=== PATIENT | female | born 1990 | race Caucasian/White ===

== ENCOUNTER 2022-06-19 12:29 | Outpatient (CLI) | payer OTHER, SELFPAY | END 2022-06-19 12:30 | disposition home or self-care (01) | PROVIDERS: Visit Provider Obstetrics & Gynecology | DX: O20.0 Threatened abortion (principal); Z3A.00 Weeks of gestation of pregnancy not specified | CPT/HCPCS: 36415; 85461; 86850; 86900; 86901 ==

== ENCOUNTER 2022-09-27 08:42 | Observation (INO) | payer OTHER, SELFPAY ==
--- NOTE | ~2022-09-27 | US_ITS ---
EXAMINATION: US OB limited, US OB transvaginal DATE: 09/27/2022 10:21 INDICATION: Vaginal bleeding during third trimester TECHNIQUE: Real-time ultrasound of the pelvis was performed. The interpreting radiologist was not pre sent for the study. COMPARISON: None. FINDINGS: There is a single living fetus in vertex presentation. The placenta is anterior and normal in appearance. The measured cervical length is 3.3 cm. cardiac activity and movement are noted. heart rate is 142 beats per minute (bpm). The amniotic fluid index is subjectively luci l. IMPRESSION: 1. Single living fetus in vertex presentation. 2. Measured cervical length 3.3 cm. 3. Normal-appearing anterior placenta. Reviewed, dictated and finalized at location B. IMPRESSION: 1. Single living fetus in vertex presentation. 2. Measured cervical length 3.3 cm. 3. Normal-appearing anterior placenta.
[2022-09-27 09:08] VITALS: BP 135/86; PULSE 83
[2022-09-27 09:15] VITALS: BP 125/87; PULSE 91; BMI 30.9
[2022-09-27 09:30] VITALS: BP 114/79; PULSE 75
[2022-09-27 09:45] VITALS: BP 116/78; PULSE 73
--- NOTE | 2022-09-27 09:55 | LDADM ---
This patient, Francisca Duffy, was admitted to [facility] on 09/27/22 at 08:42. Plans for labor, pain management and were discussed with patient. Patient/family oriented to hospital policies and general routines including ID bracelet, bed and alarms, visiting hours, pain management, procedures, bathroom and other care routines, personal items, smoking policy, room service/diet and guest tray routines, infant security routines, and visiting hours. Patient/Family are encouraged to report perceived risks to care and to ask questions if they do not understand what they are told or what they should do. See OBIX for further documentation.
--- NOTE | 2022-09-27 09:57 | PC.NURSE ---
Patient came in with complaints of vaginal bleeding this morning when urinating. Patient denies any pain. Catarina pad applied to patient and monitored FHT. FHT monitored from [id number]. Baseline 140 with moderate variability and 10x10 accelerations. No uterine activity noted. Called Simin Marcelino CNM at 0944 and reported maternal and status. Verbal orders received for ultrasound with placenta check and cervical length. May take patient off monitor at this time.
--- NOTE | 2022-09-27 10:56 | PC.NURSE ---
Spoke with CNM at 1054 on phone. Discussed US results. Patient has no new bleeding at this time. Verbal orders given for UA with culture and discharge orders given. Patient agrees to plan of care and has no questions at this time.
[2022-09-27 11:29] LABS: Appearance Urine Clear (Clear); Bacteria Urine None Seen /hpf; Bilirubin Urine Negative (Negative); Blood Urine Trace (Negative); Color Urine Yellow (Yellow); Glucose Urine UA Negative (Negative); Ketones Urine Negative (Negative); Leukocyte Esterase Ur Negative LEU/UL (Negative); Nitrate Urine Negative (Negative); Non Pathogenic Casts 0-2; Protein Urine Negative (Negative); RBC Urine 0-2 /hpf (0-2); Specific Grav Ur 1.009 (1.001-1.035); Squamous Epithelial Cell Urine None seen /hpf (Few); Urobilinogen Urine 0.2 mg/dL (<2.0); WBC Urine 0-5 /hpf
[2022-09-27 11:34] LABS: Add Urine Microscopic? YES
--- NOTE | 2022-09-30 16:16 | P.PNOB_ITS ---
OB - Triage/Final Diagnosis Visit Information Date of evaluation: 09/27/22 Reason for evaluation: other (spotting) Comments/Additional reasons for admission: I have assessed the risk for this patient, Francisca Bonilla Duffy, and determined that she would benefit from observation care. Evaluation Laboratory results: Laboratory Tests 09/27/22 11:13 Urine Color Yellow Urine Appearance Clear Urine pH 7.[address] 1.009 Urine Protein Negative Urine Glucose (UA) Negative Urine Ketones Negative Ur Blood (Man) Trace Urine Nitrate Negative Urine Bilirubin Negative Urine Urobilinogen 0.2 Leukocyte Esterase Rfl Negative Urine RBC 0-2 Urine WBC 0-5 Ur Squamous Epith Cells None seen Urine Bacteria None seen Urine Casts 0-2
== END 2022-09-27 11:15 | disposition home or self-care (01) ==
PROVIDERS: Advanced Practice Midwife; Admitting Provider Obstetrics & Gynecology; PCP Internal Medicine; Visit Provider Obstetrics & Gynecology
DX: O26.852 Spotting complicating pregnancy, second trimester (principal); Z3A.25 25 weeks gestation of pregnancy
CPT/HCPCS: 76815; 76817; 81001; G0378; G0379

== ENCOUNTER 2022-12-06 15:24 | Outpatient (CLI) | payer OTHER, SELFPAY ==
[2022-12-06 15:48] VITALS: BP 135/88; PULSE 79
[2022-12-06 15:54] LABS: Appearance Urine Cloudy (Clear); Bacteria Urine None Seen /hpf; Bilirubin Urine Negative (Negative); Blood Urine Negative (Negative); Color Urine Yellow (Yellow); Glucose Urine UA Negative (Negative); Ketones Urine Negative (Negative); Leukocyte Esterase Ur Trace LEU/UL (NEGATIVE); Nitrate Urine Negative (Negative); Non Pathogenic Casts 0-2; Protein Urine Negative (Negative); RBC Urine 0-2 /hpf (0-2); Specific Grav Ur 1.014 (1.001-1.035); Squamous Epithelial Cell Urine Occasional /hpf (Few); WBC Urine 0-5 /hpf (0-3); pH Urine 6.5 (5.0-9.0)
[2022-12-06 15:56] LABS: Add Urine Microscopic? YES
[2022-12-06 16:01] VITALS: BP 134/80; PULSE 75
[2022-12-06 16:04] LABS: Basophils Percent Auto 0.3 % (0.2-1.2); Eosinophils Absolute Auto 0.1 K/mm3 (0-0.3); Eosinophils Percent Auto 0.4 % (0-4.4); Hematocrit 38.7 % (37.0-47.0); Hemoglobin 12.9 g/dL (12.0-15.0); Immature Granulocyte Absolute 0.06 K/mm3 (0.00-0.031); Immature Granulocyte Percent A 0.5 % (0-0.5); Lymphocytes Absolute Auto 2.19 K/mm3 (0.9-3.2); Lymphocytes Percent Auto 18.8 % (18.3-44.2); Mean Corpuscular HGB Conc 33.3 g/dl (32-36); Mean Corpuscular Hemoglobin 29.5 pg (26-34); Mean Corpuscular Volume 88.4 fl (80-100); Mean Platelet Volume 11.6 fl (7.4-10.4); Monocytes Absolute Auto 0.7 K/mm3 (0.1-0.6); Monocytes Percent Auto 6.1 % (2.6-8.5); Neutrophils Absolute Auto 8.6 K/mm3 (1.3-6.7); Neutrophils Percent Auto 73.9 % (45.5-73.1); Platelet Count Result 241 k/mm3 (150-375); Red Blood Count 4.38 M/mm3 (4.2-5.4); Red Cell Distribution Width 12.5 % (11.5-14.5); White Blood Count 11.7 K/mm3 (4.5-10.0)
[2022-12-06 16:07] LABS: Total Protein Urine Random 18 mg/dL; Ur Ttl Prot Creatinine Ratio 0.19 mg/mg (0-0.20)
[2022-12-06 16:14] LABS: Alanine Aminotransferase 32 U/L (6-35); Albumin Level 3.5 g/dL (3.5-5.1); Alkaline Phosphatase 150 U/L (38-126); Anion Gap 7 mmol/L (8-16); Aspartate Amino Transferase 28 U/L (14-36); Bilirubin,Total 0.5 mg/dL (0.2-1.3); Blood Urea Nitrogen 6 mg/dL (7-17); Carbon Dioxide 19 mmol/L (22-30); Chloride 107 mmol/L (98-107); Estimated Glomerular Filt Rate > 60; Glucose 99 mg/dL (65-110); Potassium 3.7 mmol/L (3.4-5.0); Sodium 133 mmol/L (137-145); Uric Acid 4.8 mg/dL (2.5-7.5)
[2022-12-06 16:15] VITALS: BP 132/80; PULSE 83
== END 2022-12-06 16:35 | disposition home or self-care (01) ==
LOC: ANHOBOP 15:29 → ANHOBPP 15:30
PROVIDERS: PCP Internal Medicine; Visit Provider Advanced Practice Midwife
DX: O13.9 Gestational [pregnancy-induced] hypertension without significant proteinuria, unspecified trimester (principal); Z3A.00 Weeks of gestation of pregnancy not specified
CPT/HCPCS: 36415; 59025; 80053; 81001; 82570; 84156; 84550; 85025; 87086; 87147; 87181; 87186; 99199

== ENCOUNTER 2022-12-13 10:52 | Outpatient (CLI) | payer OTHER, SELFPAY ==
--- NOTE | ~2022-12-13 | US_ITS ---
EXAMINATION: US OB BPP wo non-stress DATE: 12/13/2022 12:41 INDICATION: Third trimester with -induced hypertension. TECHNIQUE: Real-time pelvic ultrasound was performed. The interpreting radiologist was not present fo r the study. COMPARISON: None. FINDINGS: There is a single living fetus in vertex presentation. The placenta is anterior. heart rate is 136 beats per minute (bpm). Normal amniotic fluid index of 16.3 cm (5th%-95%: 7.1-24.9 cm at 36 week s estimated gestational age) The following biometric data were obtained: BPD: 9.1 cm -> 36 weeks 6 days Head circumference: 31.9 cm -> 35 weeks 6 days Abdominal circumference: 32.1 cm -> 36 weeks 0 days Femur length: 7.1 cm -> 36 weeks 2 days These measurements are concordant. Head circumference to abdominal circumference ratio: 0.99 (normal range 0.92-1.07). Estimated weight: 2859 g (+/-) 429 g, 6 lbs 5 oz (+/-) 15 oz Biophysical profile performed by the technologist: breathing (30 sec sustained breathing in 30 minutes): 2 out of 2 movement (3 gross body movements in 30 minutes: 2 out of 2 tone (one episode of quoxyzk-ymawpupce-iomwfsm limb movement): 2 out of 2 Amniotic fluid pocket (2 cm): 2 out of 2 Total score: 8 out of 8 IMPRESSION: 1. Single living fetus in vertex presentation. 2. Normal amniotic fluid index of 16.3 cm. 3. Biophysical profile 8 out of 8. 4. Estimated weight is 52nd percentile by Hadlock criteria when 01/09/2023 is used as the estim ated date of delivery (SAM). Please correlate with clinical information or earlier ultrasounds for mo st accurate SAM. Reviewed, dictated and finalized at location A. IMPRESSION: 1. Single living fetus in vertex presentation. 2. Normal amniotic fluid index of 16.3 cm. 3. Biophysical profile 8 out of 8. 4. Estimated weight is 52nd percentile by Hadlock criteria when 3 is used as the estimated date of delivery (SAM). Please correlate with clinic al information or earlier ultrasounds for most accurate SAM.
[2022-12-13 11:17] LABS: Basophils Percent Auto 0.3 % (0.2-1.2); Eosinophils Absolute Auto 0.1 K/mm3 (0-0.3); Eosinophils Percent Auto 0.5 % (0-4.4); Hematocrit 40.8 % (37.0-47.0); Hemoglobin 13.4 g/dL (12.0-15.0); Immature Granulocyte Absolute 0.04 K/mm3 (0.00-0.031); Immature Granulocyte Percent A 0.4 % (0-0.5); Lymphocytes Absolute Auto 1.97 K/mm3 (0.9-3.2); Lymphocytes Percent Auto 19.2 % (18.3-44.2); Mean Corpuscular HGB Conc 32.8 g/dl (32-36); Mean Corpuscular Hemoglobin 29.5 pg (26-34); Mean Corpuscular Volume 89.9 fl (80-100); Mean Platelet Volume 11.2 fl (7.4-10.4); Monocytes Absolute Auto 0.7 K/mm3 (0.1-0.6); Monocytes Percent Auto 6.7 % (2.6-8.5); Neutrophils Absolute Auto 7.5 K/mm3 (1.3-6.7); Neutrophils Percent Auto 72.9 % (45.5-73.1); Platelet Count Result 247 k/mm3 (150-375); Red Blood Count 4.54 M/mm3 (4.2-5.4); Red Cell Distribution Width 12.6 % (11.5-14.5); White Blood Count 10.3 K/mm3 (4.5-10.0)
[2022-12-13 11:20] VITALS: BP 110/82; PULSE 76
[2022-12-13 11:26] LABS: Alanine Aminotransferase 38 U/L (6-35); Albumin Level 3.6 g/dL (3.5-5.1); Alkaline Phosphatase 178 U/L (38-126); Anion Gap 5 mmol/L (8-16); Aspartate Amino Transferase 40 U/L (14-36); Bilirubin,Total 0.7 mg/dL (0.2-1.3); Blood Urea Nitrogen 6 mg/dL (7-17); Carbon Dioxide 22 mmol/L (22-30); Chloride 105 mmol/L (98-107); Estimated Glomerular Filt Rate > 60; Glucose 79 mg/dL (65-110); Potassium 3.5 mmol/L (3.4-5.0); Sodium 132 mmol/L (137-145); Uric Acid 5.1 mg/dL (2.5-7.5)
[2022-12-13 11:30] LABS: Creatinine Urine 48.1 mg/dL; Total Protein Urine Random 18 mg/dL; Ur Ttl Prot Creatinine Ratio 0.37 mg/mg (0-0.20)
[2022-12-13 11:31] VITALS: BP 112/89; PULSE 89
[2022-12-13 11:37] LABS: Add Urine Microscopic? YES; Appearance Urine Cloudy (Clear); Bacteria Urine None Seen /hpf; Bilirubin Urine Negative (Negative); Blood Urine Negative (Negative); Color Urine Yellow (Yellow); Glucose Urine UA Negative (Negative); Ketones Urine Negative (Negative); Leukocyte Esterase Ur 3+ LEU/UL (NEGATIVE); Nitrate Urine Negative (Negative); Non Pathogenic Casts 0-2; Protein Urine Negative (Negative); RBC Urine 0-2 /hpf (0-2); Specific Grav Ur 1.006 (1.001-1.035); Squamous Epithelial Cell Urine Moderate /hpf (Few); Urobilinogen Urine 0.2 mg/dL (<2.0); pH Urine 7.5 (5.0-9.0)
[2022-12-13 11:46] VITALS: BP 105/79; PULSE 84
--- NOTE | 2022-12-13 12:20 | PC.NURSE ---
Simin Marcelino on the unit reviewed labs and blood pressures. Pt currently down in ultrasound. Simin Marcelino planning an induction next fri.
--- NOTE | 2022-12-13 12:35 | PC.NURSE ---
pt to [facility] office for preadmission paperwork. Pt advised that the office will be calling to set up an appointment for blood pressure and lab works on Friday.
[2022-12-13 12:36] VITALS: BP 105/79; PULSE 81
== END 2022-12-13 12:35 | disposition home or self-care (01) ==
LOC: ANHOBOP 10:56 → ANHOBPP 10:57
PROVIDERS: PCP Internal Medicine; Visit Provider Obstetrics & Gynecology
DX: O13.9 Gestational [pregnancy-induced] hypertension without significant proteinuria, unspecified trimester (principal); Z3A.00 Weeks of gestation of pregnancy not specified
CPT/HCPCS: 36415; 59025; 76819; 80053; 81001; 82570; 84156; 84550; 85025; 87077; 87086; 87186; 99199

== ENCOUNTER 2022-12-16 09:21 | Outpatient (CLI) | payer OTHER, SELFPAY ==
[2022-12-16 09:46] LABS: Basophils Percent Auto 0.3 % (0.2-1.2); Eosinophils Absolute Auto 0.1 K/mm3 (0-0.3); Eosinophils Percent Auto 0.5 % (0-4.4); Hematocrit 39.9 % (37.0-47.0); Hemoglobin 13.3 g/dL (12.0-15.0); Immature Granulocyte Absolute 0.06 K/mm3 (0.00-0.031); Immature Granulocyte Percent A 0.6 % (0-0.5); Lymphocytes Absolute Auto 1.95 K/mm3 (0.9-3.2); Lymphocytes Percent Auto 19.1 % (18.3-44.2); Mean Corpuscular HGB Conc 33.3 g/dl (32-36); Mean Corpuscular Hemoglobin 29.5 pg (26-34); Mean Corpuscular Volume 88.5 fl (80-100); Mean Platelet Volume 11.5 fl (7.4-10.4); Monocytes Absolute Auto 0.6 K/mm3 (0.1-0.6); Monocytes Percent Auto 6.2 % (2.6-8.5); Neutrophils Absolute Auto 7.5 K/mm3 (1.3-6.7); Neutrophils Percent Auto 73.3 % (45.5-73.1); Platelet Count Result 228 k/mm3 (150-375); Red Blood Count 4.51 M/mm3 (4.2-5.4); Red Cell Distribution Width 12.8 % (11.5-14.5); White Blood Count 10.2 K/mm3 (4.5-10.0)
[2022-12-16 09:55] LABS: Creatinine Urine 39.5 mg/dL; Total Protein Urine Random 19 mg/dL; Ur Ttl Prot Creatinine Ratio 0.48 mg/mg (0-0.20)
[2022-12-16 09:57] LABS: Alanine Aminotransferase 36 U/L (6-35); Albumin Level 3.5 g/dL (3.5-5.1); Alkaline Phosphatase 163 U/L (38-126); Anion Gap 8 mmol/L (8-16); Aspartate Amino Transferase 30 U/L (14-36); Bilirubin,Total 0.5 mg/dL (0.2-1.3); Blood Urea Nitrogen 6 mg/dL (7-17); Calcium 9.4 mg/dL (8.4-10.2); Carbon Dioxide 17 mmol/L (22-30); Chloride 108 mmol/L (98-107); Estimated Glomerular Filt Rate > 60; Glucose 90 mg/dL (65-110); Potassium 3.6 mmol/L (3.4-5.0); Sodium 133 mmol/L (137-145); Uric Acid 5.4 mg/dL (2.5-7.5)
[2022-12-16 10:14] VITALS: BP 122/80
[2022-12-16 10:26] VITALS: BP 126/80
[2022-12-16 10:31] LABS: Add Urine Microscopic? YES; Appearance Urine Cloudy (Clear); Bacteria Urine None Seen /hpf; Bilirubin Urine Negative (Negative); Blood Urine Negative (Negative); Color Urine Yellow (Yellow); Glucose Urine UA Negative (Negative); Ketones Urine Negative (Negative); Leukocyte Esterase Ur 3+ LEU/UL (NEGATIVE); Need Manual Microscopic Reviewed; Nitrate Urine Negative (Negative); Non Pathogenic Casts 0-2; Protein Urine Negative (Negative); RBC Urine 0-2 /hpf (0-2); Specific Grav Ur 1.005 (1.001-1.035); Squamous Epithelial Cell Urine Many /hpf (Few); Urobilinogen Urine 0.2 mg/dL (<2.0); WBC Urine 21-50 /hpf (0-3)
[2022-12-16 10:32] VITALS: BP 122/80
== END 2022-12-16 11:00 | disposition home or self-care (01) ==
LOC: ANHOBOP 09:26 → ANHOBPP 09:27
PROVIDERS: PCP Internal Medicine; Visit Provider Advanced Practice Midwife
DX: O13.9 Gestational [pregnancy-induced] hypertension without significant proteinuria, unspecified trimester (principal); Z3A.00 Weeks of gestation of pregnancy not specified
CPT/HCPCS: 36415; 59025; 80053; 81001; 82570; 84156; 84550; 85025; 87086; 87088; 99199

== ENCOUNTER 2022-12-19 00:01 | Inpatient (IN) | payer OTHER, SELFPAY ==
[2022-12-19] VITALS (43 sets, daily range): BP systolic 108–160; BP diastolic 61–108; PULSE 59–92; TEMP 36.1–36.4; BMI 32.3
--- NOTE | 2022-12-19 00:30 | LDADM ---
This patient, Francisca Duffy, was admitted to Labor/Delivery/Recovery 106 on 12/19/22 at 00:01. Plans for labor, pain management and were discussed with patient. Patient/family oriented to hospital policies and general routines including ID bracelet, bed and alarms, visiting hours, pain management, procedures, bathroom and other care routines, personal items, smoking policy, room service/diet and guest tray routines, security routines, and visiting hours. Patient/Family are encouraged to report perceived risks to care and to ask questions if they do not understand what they are told or what they should do. See OBIX for further documentation.
[2022-12-19 00:59] LABS: Basophils Percent Auto 0.3 % (0.2-1.2); Eosinophils Absolute Auto 0.1 K/mm3 (0-0.3); Eosinophils Percent Auto 0.6 % (0-4.4); Hematocrit 38.9 % (37.0-47.0); Hemoglobin 12.8 g/dL (12.0-15.0); Immature Granulocyte Absolute 0.05 K/mm3 (0.00-0.031); Immature Granulocyte Percent A 0.5 % (0-0.5); Lymphocytes Absolute Auto 2.09 K/mm3 (0.9-3.2); Mean Corpuscular HGB Conc 32.9 g/dl (32-36); Mean Corpuscular Hemoglobin 29.4 pg (26-34); Mean Corpuscular Volume 89.4 fl (80-100); Monocytes Absolute Auto 0.9 K/mm3 (0.1-0.6); Monocytes Percent Auto 9.1 % (2.6-8.5); Neutrophils Absolute Auto 6.8 K/mm3 (1.3-6.7); Neutrophils Percent Auto 68.5 % (45.5-73.1); Platelet Count Result 217 k/mm3 (150-375); Red Blood Count 4.35 M/mm3 (4.2-5.4); Red Cell Distribution Width 12.7 % (11.5-14.5); White Blood Count 9.9 K/mm3 (4.5-10.0)
[2022-12-19] MEDS: DINOPROSTONE 10 MG VAG INSERT VAGINAL (01:01)
[2022-12-19 01:26] LABS: Anion Gap 6 mmol/L (8-16); Blood Urea Nitrogen 5 mg/dL (7-17); Carbon Dioxide 19 mmol/L (22-30); Chloride 107 mmol/L (98-107); Estimated CRCL calculation 181 ml/min; Estimated Glomerular Filt Rate > 60; Glucose 84 mg/dL (65-110); Potassium 3.5 mmol/L (3.4-5.0); Sodium 132 mmol/L (137-145)
[2022-12-19] MEDS: miSOPROStol 25 MCG TABLET 50 MCG PO ×3 (13:35→22:12)
[2022-12-19 14:27] LABS: Rapid Plasma Reagin Non-Reactive (NonReactive)
--- NOTE | 2022-12-19 16:41 | WPDANESEPP ---
Anes - Eval Pre Procedure Procedure: labor epidural Date/Time: 12/19/22 16:41 Pre Op Diagnosis: IOL Patient Data Age: 32 Gender: F Height: 1.8 m Weight: 105 kg Last Vital Signs Temp 36.3 C L 12/19/22 15:00 Pulse 68 12/19/22 16:31 BP 119/62 12/19/22 16:31 O2 Del Method Room Air 12/19/22 00:28 Allergies Allergy/AdvReac Type Severity Reaction Status Date / Time No Known Allergies Allergy Verified 09/27/22 10:13 Home Medications Medication Instructions Recorded Confirmed Type levothyroxine 50 mcg tablet 50 mcg PO DAILY 09/27/22 09/27/22 History ampicillin 500 mg capsule 500 mg PO BID 12/13/22 12/13/22 History prenat.vits,russell,mxm-tzic-vnaef tablet 12/13/22 History Laboratory Tests 12/19/22 00:38 WBC 9.9 K/mm3 (4.5-10.0) RBC 4.35 M/mm3 (4.2-5.4) Hgb 12.8 g/dL (12.0-15.0) Hct 38.9 % (37.0-47.0) MCV 89.4 fl (80-100) MCH 29.4 pg (26-34) MCHC 32.9 g/dl (32-36) RDW 12.7 % (11.5-14.5) Plt Count 217 k/mm3 (150-375) MPV 12.0 H fl (7.4-10.4) Immature Gran % (Auto) 0.5 % (0-0.5) Neut % (Auto) 68.5 % (45.5-73.1) Lymph % (Auto) 21.0 % (18.3-44.2) Smith % (Auto) 9.1 H % (2.6-8.5) Eos % (Auto) 0.6 % (0-4.4) Baso % (Auto) 0.3 % (0.2-1.2) Lymph # (Auto) 2.09 K/mm3 (0.9-3.2) Smith # (Auto) 0.9 H K/mm3 (0.1-0.6) Eos # (Auto) 0.1 K/mm3 (0-0.3) Baso # (Auto) 0.0 K/mm3 (0.0-0.1) Abs Immat Gran (auto) 0.05 H K/mm3 (0.00-0.031) Absolute Neuts (auto) 6.8 H K/mm3 (1.3-6.7) Absolute Nucleated RBC 0.0 K/mm3 (0.0-0.012) Nucleated RBC % 0.0 % (0.0-0.2) Sodium 132 L mmol/L (137-145) Potassium 3.5 mmol/L (3.4-5.0) Chloride 107 mmol/L (98-107) Carbon Dioxide 19 L mmol/L (22-30) Anion Gap 6 L mmol/L (8-16) BUN 5 L mg/dL (7-17) Creatinine 0.50 L mg/dL (0.7-1.0) Estim Creat Clear Calc 181 ml/min Estimated GFR > 60 (59 - ) Glucose 84 mg/dL (65-110) Calcium 9.0 mg/dL (8.4-10.2) RPR Non-reactive (NonReactive) Blood Type O Positive Antibody Screen Negative Patient hx anesthesia problems: none Family hx anesthesia problems: none Results Review: All pre-operative results and documents have been reviewed as part of the pre-operative evaluation. FORMERLY [facility], [facility] Past Medical History Medical History (Updated 12/19/22 @ 16:42 by Samia Mar CRNA) Anxiety Hypothyroid Obesity (BMI 30-39.9) PIH ( induced hypertension) UTI (urinary tract infection) Family History Family History Other Patient denies significant medical history Social History Social History Smoking status: Never smoker Substance use: never Lack of Transportation: No Lack of Food: Never True Current Housing: I Have Housing Concerned About Future Housing: No Difficulty Paying Gas/Electric Bills: No Difficulty Paying for Meds: No Currently Unemployed: No Education: Bachelor's Degree Difficulty w/ Childcare or Family Care: No Spiritual care concerns: No Exam Day of Procedure 12/19/22 16:41 Patient weight: obese Heart: regular rate and rhythm Lungs: normal air movement Airway: Mallampati scale Neurological: alert and oriented
[2022-12-20] VITALS (213 sets, daily range): BP systolic 62–153; BP diastolic 25–100; PULSE 54–238; TEMP 36.6–37.1; O2SAT 89–100
[2022-12-20] MEDS: miSOPROStol 25 MCG TABLET VAGINAL ×3 (02:29→10:39)
[2022-12-20] MEDS: ACETAMINOPHEN 500 MG TABLET 1000 MG PO ×2 (02:32→08:07)
[2022-12-20] MEDS: fentaNYL CITRATE INJ (*CRX) 100 MCG/2 ML VIAL IV PUSH (12:32)
[2022-12-20] MEDS: LACTATED RINGERS 1,000 ML 125 ML IV CONT ×2 (13:23→18:21)
[2022-12-20] MEDS: OXYTOCIN 30 UNITS/NS 500 ML 30 UNITS/500 ML BAG 6 UNITS IV CONT (15:04)
--- NOTE | 2022-12-20 21:47 | WPDOBADMIT ---
Obstetrics - Admit Note Admission Note: Late entry, patient seen at 0805 on 12/20. Presents for MIL indicated for gestational HTN. Denies symptoms of preeclampsia. Good movement. Tolerated cervidil and cytotec ripening well. Plan for gordon bulb and pitocin. record reviewed. No pertinent additions to the history and/or any subsequent changes in the physical findings that are not consistent with the expected course of the were found. Additions to the history and/or subsequent changes in the physical findings follow. None.
--- NOTE | 2022-12-20 21:48 | PM.OBPNLAB ---
Pain Control Date/time seen: 12/20/22 18:00 Comments: AROM performed with clear fluid, moderate amount. Pelvic Exam Dilation (cm): 4 Effacement (%): 60 station: -3 Amniotic membrane status: Bulging Status status: Category l Comments: s/p prolonged decel with good recovery Assessment and Plan Assessment: induction ongoing Plan: continuous present management Comments: restart pitocin per protocol when able. IUPC placed.
[2022-12-21] VITALS (70 sets, daily range): BP systolic 105–154; BP diastolic 48–91; PULSE 57–134; RESP 16–18; TEMP 36.7–37; O2SAT 96–100
--- NOTE | 2022-12-21 04:59 | P.PCNOB_ITS ---
OB - Vaginal Delivery Note Procedure Delivery date: 12/21/22 Events: Gestational Hypertension Induction method: Per Misoprostol Protocol and Per Cervidil Protocol Delivery augmentation: Rupture of Membranes and Pitocin Delivery monitor: External FHT, External Uterine, Internal FHT and Internal Uterine Route of delivery: Laceration Description: Perineal - 2nd Degree Delivery repair: vicryl Specimen: Yes (placenta for pathology) Quantitative Blood Loss (ml): 50 Anesthesia type: Epidural Disposition: Floor Complications: No immediate complications [place] Baby Date of : 12/21/22 Weeks of gestation at delivery: 37 Weight (pounds): 6 Weight (ounces): 1 presentation: vertex position: Left Occiput Anterior Placenta delivery description: Spontaneous and Normal Configuration
[2022-12-21] MEDS: SODIUM CHLORIDE 0.9% IV 300 ML 600 ML I-UTERINE (05:33)
[2022-12-21] MEDS: ACETAMINOPHEN 325 MG TABLET 650 MG PO ×3 (05:48→19:24)
[2022-12-21] MEDS: IBUPROFEN 600 MG TABLET PO ×3 (05:48→19:24)
--- NOTE | 2022-12-21 07:30 | PC.NURSE ---
Patient arrived at 0701, assessed, admitted, paperwork discussed.
[2022-12-21] MEDS: MULTIVIT/MIN/PREN/FOL AC/IRON TABLET 1 TAB PO (10:17)
--- NOTE | 2022-12-21 14:30 | PC.NURSE ---
Breast pump provided due to ineffective feedings. Instructions given on cleaning, care, usage, that there should be no pain, pumping schedule for milk production, collection, and storage of human milk. Patient was assessed for correct placement, flange size, to pump for comfort and nipple stretching/stimulation for adequate milk production every 3 hours (8 times in 24 hours) 1-2 times at night.
[2022-12-22 00:15] VITALS: BP 137/93; PULSE 84; RESP 16; TEMP 36.1; O2SAT 100
[2022-12-22] MEDS: IBUPROFEN 600 MG TABLET PO ×3 (01:00→13:21)
[2022-12-22] MEDS: ACETAMINOPHEN 325 MG TABLET 650 MG PO ×3 (01:00→13:21)
[2022-12-22 05:58] LABS: Hematocrit 37.1 % (37.0-47.0); Hemoglobin 12.3 g/dL (12.0-15.0)
[2022-12-22 07:15] VITALS: BP 128/81; PULSE 57; RESP 16; TEMP 36.9; O2SAT 98
[2022-12-22] MEDS: MULTIVIT/MIN/PREN/FOL AC/IRON TABLET 1 TAB PO (07:20)
--- NOTE | 2022-12-22 07:28 | PM.OBPNVD ---
OB - PN: Subj Subjective Date/time seen: 12/22/22 07:28 Patient comments: no complaints, pain well controlled, incisional pain, tolerating diet and flatus present OB - PN: Obj Data Labs 12/22/22 05:44 12/19/22 00:38 Labs: Laboratory Results - last 24 hr 12/22/22 05:44 Hgb 12.3 Hct 37.1 OB - PN A/P Plan day: 1 Plan: routine care Comments: No problems, routine care Time Spent With Patient Time: Total time spent is greater than 50% in coordination of care (as documented) at patient's floor/unit and/or counseling patient: Exam Const: General: comfortable, no acute distress and alert Resp: Effort & Inspection: normal respiratory effort Auscultation: no crackles, no rales and no rhonchi Cardio: Rate: regular rate Heart sounds: no click, no murmurs and no rubs GI: Inspection: non-distended GI Palp: No Tenderness to palpation present (GI) Auscultation: normal bowel sounds Other: Incision - CDI Extrem: General: normal to inspection, no pedal edema and no calf tenderness
--- NOTE | 2022-12-22 07:28 | PM.OBDSVD ---
DS: Admitting Diagnosis Discharge Date December 22/2023 Admitting Diagnosis term DS: Discharge Diagnosis Discharge Diagnosis (1) Post term , delivered: Code(s): O48.0 - Post-term Status: Acute OB - DS: Summary OB Procedures : None OB Procedures Intrapartum: Spontaneous Vag Delivery OB Procedures: : None Peripartum Data Laceration Description: Perineal - 2nd Degree Time Spent with Patient Time attestation: Total time spent providing and/or coordinating discharge services: DS: Data Data Completed and Pending Pending studies at discharge: Pending at discharge 12/21/22 04:39 Surgical [PTH] Routine Labs on day of discharge: Labs from last 24 hours 12/22/22 05:44 Hgb 12.3 Hct 37.1 Discharge Plan Discharge Attending physician on discharge: Enoch Sarmiento Discharging Clinician: Enoch Sarmiento Patient Disposition: Home, Self-Care Activity: pelvic rest Diet: regular Patient Instructions: Antibiotic Form Stand Alone Forms: General Discharge Information Follow-up/Referrals: Enoch Sarmiento MD [Physician] - Discharge Medications: Continued levothyroxine 50 mcg tablet 50 mcg PO DAILY #2 Tablet Discontinued ampicillin 500 mg Capsule 500 mg PO BID Date of admission: 12/19/22 00:01 Primary Care Provider: Can,Sushant Kendall Admitting Provider: Jorge Daniel Attending physician on admission: Aissatou Marcelino Condition: Stable
[2022-12-22 11:55] VITALS: BP 129/81; PULSE 64
--- NOTE | 2022-12-22 14:00 | WPDANLDPN2 ---
Anes-Prog Note L&D Date/Time: 12/22/22 14:00 Comfortable throughout: labor and delivery Neuraxial method: epidural Epidural/Spinal procedure site: clean & non-tender Neuro status: Neuro function grossly intact. Cardiovascular status: normal Respiratory status: normal Airway patency: baseline Mental status: baseline Post-Op hydration status: normal Vital Signs: Last Vital Signs Temp 36.9 C 12/22/22 07:15 Pulse 64 12/22/22 11:55 Resp 16 12/22/22 07:15 BP 129/81 12/22/22 11:55 Pulse Ox 98 12/22/22 07:15 O2 Del Method Room Air 12/22/22 07:15 Pain score (VAS): 2/10 I/O: Intake & Output 12/21/22 12/22/22 12/22/22 23:59 07:59 15:59 Intake Total 0 600 Output Total 850 300 Balance -850 -300 600 Post-procedural complaints: none Patient feedback: Patient satisfied with anesthetic care.
--- NOTE | 2022-12-22 16:18 | W.PM.PROC2 ---
Procedure Note - Detailed Date of Procedure 12/22/22 Pre-op Diagnosis failed induction of labor, term , preeclampsia/severe preeclampsia, prolonged rupture of membranes Post-op Diagnosis Same Procedure Performed Low-transverse section Surgeon Enoch Sarmiento MD Anesthesia Spinal Indications prolonged rupture of membranes, severe preeclampsia, induction Findings Normal gestational maternal anatomy, average size infant, normal Apgars. Description of Procedure The patient was taken the operating room. She was prepped and draped in dorsal supine position with a leftward tilt. This was done after spinal anesthetic was applied. A low-transverse skin incision was made and carried down till of the fascia with the knife. The fascial incision was made with the knife. The fascial incision was extended laterally with Mendez scissors. The fascia was tented upward superiorly and inferiorly the rectus muscles were dissected off bluntly. The rectus muscles were the midline. The preperitoneal fat and peritoneum were dissected open bluntly at the superior aspect of the rectus muscles. The peritoneal incision was extended superior and inferior with good position of bladder. The uterine incision was made with a scalpel down to the level of the amniotic cavity. The amniotic cavity was entered bluntly. The infant was delivered. The cord was clamped and cut and the infant was handed off to waiting pediatric staff. Cord bloods were obtained. The placenta was removed manually. The uterus was exteriorized. The uterus was cleared of all clots, debris and membranes. The uterus was closed in 0 Vicryl running lock fashion. An imbricating over a was placed along the incision line as well. The uterus was returned to the abdomen. The gutters were cleared of all clots and debris. The fascia was closed with 0 Vicryl running fashion. The subcutaneous tissue was irrigated pinpoint bleeders were cauterized. The skin was closed with subcuticular absorbable remy. The skin incision line was covered with glue. The patient tolerated the procedure well. She has taken recovery room in stable condition. Sponge lap and needle counts were correct x2. Urine Output 300 Complications No immediate complications Condition Stable Disposition PACU
[2022-12-22 16:30] VITALS: BP 124/85; PULSE 63
--- NOTE | 2022-12-22 16:44 | PC.NURSE ---
Patient viewed the discharge video Mother & Baby Care, The First Two Weeks . Patient was given the opportunity and encouraged to ask questions. Patient verbalized understanding of information shared and has been given the mother/baby guide for home reference.
[2022-12-23 14:13] VITALS: BP 139/83; PULSE 58; RESP 16; TEMP 36.8; O2SAT 100
== END 2022-12-22 17:36 | disposition home or self-care (01) | DRG 807 ==
LOC: ANHOB2 12-22 16:45 → ANHLDR 12-24 08:07 → ANHOB2 12-24 08:07
PROVIDERS: Admitting Provider Obstetrics & Gynecology; PCP Internal Medicine; Referring Provider Obstetrics & Gynecology; Visit Provider Obstetrics & Gynecology
DX: O13.4 Gestational [pregnancy-induced] hypertension without significant proteinuria, complicating childbirth (principal); Z37.0 Single live birth; O42.92 Full-term premature rupture of membranes, unspecified as to length of time between rupture and onset of labor; O70.1 Second degree perineal laceration during delivery; O14.14 Severe pre-eclampsia complicating childbirth; Z3A.37 37 weeks gestation of pregnancy
CPT/HCPCS: 36415; 59025; 80048; 80053; 81001; 82570; 84156; 84550; 85014; 85018; 85025; 86592; 86850; 86900; 86901; 87086; 87088; 88307; 99199; A9270; J2590; J2795; J3010; J7030; J7120

== ENCOUNTER 2022-12-27 09:58 | Outpatient (CLI) | payer OTHER, SELFPAY ==
[2022-12-27 10:23] VITALS: BP 127/91; PULSE 77
[2022-12-27 10:30] VITALS: BP 123/94; BP 127/91; PULSE 74; PULSE 77
[2022-12-27 10:43] LABS: Basophils Percent Auto 0.4 % (0.2-1.2); Eosinophils Absolute Auto 0.2 K/mm3 (0-0.3); Eosinophils Percent Auto 1.7 % (0-4.4); Hematocrit 43.2 % (37.0-47.0); Hemoglobin 14.7 g/dL (12.0-15.0); Immature Granulocyte Absolute 0.04 K/mm3 (0.00-0.031); Immature Granulocyte Percent A 0.4 % (0-0.5); Lymphocytes Absolute Auto 2.57 K/mm3 (0.9-3.2); Lymphocytes Percent Auto 26.8 % (18.3-44.2); Mean Corpuscular Hemoglobin 30.1 pg (26-34); Mean Corpuscular Volume 88.3 fl (80-100); Mean Platelet Volume 10.7 fl (7.4-10.4); Monocytes Absolute Auto 0.6 K/mm3 (0.1-0.6); Monocytes Percent Auto 6.5 % (2.6-8.5); Neutrophils Absolute Auto 6.2 K/mm3 (1.3-6.7); Neutrophils Percent Auto 64.2 % (45.5-73.1); Platelet Count Result 378 k/mm3 (150-375); Red Blood Count 4.89 M/mm3 (4.2-5.4); Red Cell Distribution Width 12.6 % (11.5-14.5); White Blood Count 9.6 K/mm3 (4.5-10.0)
[2022-12-27 10:45] VITALS: BP 127/83; PULSE 62
[2022-12-27 11:00] VITALS: BP 135/79; PULSE 66
[2022-12-27 11:00] LABS: Alanine Aminotransferase 48 U/L (6-35); Alkaline Phosphatase 162 U/L (38-126); Anion Gap 12 mmol/L (8-16); Aspartate Amino Transferase 38 U/L (14-36); Bilirubin,Total 0.6 mg/dL (0.2-1.3); Blood Urea Nitrogen 12 mg/dL (7-17); Calcium 9.6 mg/dL (8.4-10.2); Carbon Dioxide 19 mmol/L (22-30); Chloride 107 mmol/L (98-107); Estimated Glomerular Filt Rate > 60; Glucose 95 mg/dL (65-110); Potassium 3.9 mmol/L (3.4-5.0); Sodium 138 mmol/L (137-145); Uric Acid 6.1 mg/dL (2.5-7.5)
--- NOTE | 2022-12-27 11:10 | PC.NURSE ---
called Dr. Daniel reported BP and lab result. decreased headaches and blurred vision. discharge order received
[2022-12-27 11:15] VITALS: BP 146/77; PULSE 61
== END 2022-12-27 11:20 | disposition home or self-care (01) ==
LOC: ANHOBOP 10:05 → ANHOBPP 10:18
PROVIDERS: PCP Internal Medicine; Visit Provider Obstetrics & Gynecology
DX: O13.9 Gestational [pregnancy-induced] hypertension without significant proteinuria, unspecified trimester (principal)
CPT/HCPCS: 36415; 80053; 84550; 85025; 99199